=== PATIENT | male | born 1965 | race Caucasian/White ===

== ENCOUNTER 2020-05-13 12:26 | Outpatient (REF) | payer OTHER, SELFPAY ==
--- NOTE | 2020-05-13 12:47 | XR_ITS ---
EXAMINATION: XR HAND, RIGHT CLINICAL INFORMATION: Pain in right hand COMPARISON: 03/21/2020 TECHNIQUE: Two views of the right hand. FINDINGS: There is a fracture at the proximal shaft of the fifth metacarpal. Persistent radial displacement of the distal fragment, with alignment unchanged from prior. There is increased callus formation at the fracture site. No additional fractures are seen. The soft tissues are unremarkable. IMPRESSION: Redemonstration of the fifth metacarpal fracture at the proximal shaft. The fracture line remains evident with callus formation now present.
== END 2020-05-13 12:27 | disposition home or self-care (01) ==
LOC: HO.XRAY 12:26
PROVIDERS: PCP Internal Medicine; Referring Provider Internal Medicine; Visit Provider Physician Assistant
DX: S62.308D Unspecified fracture of other metacarpal bone, subsequent encounter for fracture with routine healing (principal)
CPT/HCPCS: 73120; 99212; 99213

== ENCOUNTER 2023-01-07 13:45 | Outpatient (REF) | payer OTHER, SELFPAY ==
--- NOTE | ~2023-01-07 | CT_ITS ---
EXAMINATION: LUNG CANCER SCREENING CT CHEST WITHOUT CONTRAST CLINICAL INFORMATION: Current smoker with 40 pack year history COMPARISON: 11/24/2008 TECHNIQUE: Multidetector volumetric CT imaging of the chest was obtained noncontrast using low dose screening CT technique. Axial thin section 0.625 mm reformations in soft tissue and lung windows were obtained. Sagittal and coronal reformations were obtained. Axial MIP images were also created and reviewed. This CT examination was performed using dose optimization techniques as appropriate, variously including the following: *Automated exposure control *Adjustment of mA and/or kV according to patient size (this includes techniques or standardized protocols for targeted exams where dose is matched to indication/reason for exam; i.e. extremities or head) *Use of iterative reconstruction technique TOTAL EXAM DLP: 41 mGy-cm FINDINGS: PULMONARY NODULES (see casper images): No suspicious pulmonary nodules. LUNGS / PLEURA: Mild emphysema. Diffuse mild bronchial wall thickening without bronchiectasis. No pleural effusion or pneumothorax. MEDIASTINUM / CHANELLE: Heart normal in size without pericardial effusion. Great vessels normal caliber. No lymphadenopathy. Coronary calcifications present. Imaged thyroid gland unremarkable. CHEST WALL / AXILLA: Unremarkable. UPPER ABDOMEN: Included portions grossly unremarkable allowing for limitations in technique. Stable benign cyst in the lateral segment of liver. OSSEOUS STRUCTURES: No acute or suspicious osseous abnormalities. CT/CT lung screening IMPRESSION: * No evidence of pulmonary malignancy. * Mild emphysema and chronic airways disease. ASSESSMENT: Lung RADS category: 1. Negative. No nodules or definitely benign nodules. Continue annual screening with low-dose CT in 12 months. Probability of malignancy less than 1%. RECOMMENDATION: Follow up low dose CT chest in 1 year.
== END 2023-01-07 13:46 | disposition home or self-care (01) ==
LOC: HO.CT 13:45
PROVIDERS: PCP Nurse Practitioner Family; Visit Provider Physician Assistant Medical
DX: Z12.2 Encounter for screening for malignant neoplasm of respiratory organs (principal); F17.210 Nicotine dependence, cigarettes, uncomplicated
CPT/HCPCS: 71271; G0296

== ENCOUNTER 2023-02-16 11:28 | Emergency (ER) | payer OTHER, SELFPAY ==
--- NOTE | ~2023-02-16 | XR_ITS ---
EXAMINATION: XR RIBS, RIGHT, PA CHEST CLINICAL INFORMATION: Rib pain. COMPARISON: None available. TECHNIQUE: 3 views of the right ribs were obtained along with a PA view of the chest. A skin marker overlies the left mid ribs. FINDINGS: Lungs are clear. No consolidation, pneumothorax, or pleural effusion. The cardiomediastinal silhouette and pulmonary vasculature are normal. Osseous structures are unremarkable. Ribs are intact. No fractures are identified. XR/XR ribs LT min 3V w CXR1V IMPRESSION: Unremarkable examination.
[2023-02-16 11:32] VITALS: BP 179/100; PULSE 58; RESP 19; TEMP 36.6; O2SAT 98; BMI 23.0
--- NOTE | 2023-02-16 11:32 | ED.FALL ---
HPI - Fall General Chief Complaint: General Medical Stated Complaint: possible rib broken Related Data Previous Rx's Medication Instructions Recorded blood pressure test kit-large #1 ea 04/17/21 ([facility] Blood Pressure Monitor kit) amitriptyline 25 mg tablet 25 mg PO BEDTIME 30 days #30 tabs 02/10/23 lisinopril 2.5 mg tablet 2.5 mg PO DAILY #90 tabs 02/10/23 albuterol sulfate 90 mcg/actuation 2 puff inhalation Q6H PRN 02/15/23 aerosol inhaler bronchospasm 30 days #8.5 grams Allergies Allergy/AdvReac Type Severity Reaction Status Date / Time metoclopramide [Reglan] Allergy Unknown vomiting Verified 12/16/22 09:06 morphine [Morphine] Allergy Unknown NAUSEA & Verified 12/16/22 09:06 VOMITING, nausea/vomiting, vomiting tramadol [TRAMADOL] Allergy Unknown VOMITING, Verified 12/16/22 09:06 nausea/vomiting, vomiting PMFSH Past Medical History Medical History (Updated 02/16/23 @ 15:36 by FRANKIE Kraus) HTN (hypertension) Migraines Nicotine dependence, cigarettes, uncomplicated Surgical History (Updated 01/07/23 @ 13:41 by Georgia Jack PA-C) History of removal of cyst History of right inguinal hernia repair History of shoulder surgery History of testicular surgery History of transurethral resection of prostate Family History Family History Father Lung cancer Mother Breast cancer Social History Social History (Updated 01/07/23 @ 13:41 by Georgia Jack PA-C) Housing: House Patient Tobacco Use Status: Current everyday Tobacco user Tobacco use type: Cigarette Cigarette Packs Per Day: 1 Years Smoked: (onset 9yo, 1ppd x 48yrs, 40+PYH) e-Cigarette/Vaping Use: Never Used Second Hand Smoke Exposure: No Advance Directives: No Advance Directives Information Provided: Yes Current occupational status: disabled Cognitive needs: No Hearing needs: No Vision needs: No Physical Exam Vital Signs: Vital Signs: Last Vital Signs Temp 98 F 02/16/23 11:32 Pulse 58 02/16/23 11:32 Resp 19 02/16/23 11:32 BP 179/100 H 02/16/23 11:32 Pulse Ox 98 02/16/23 11:32 O2 Del Method Room Air 02/16/23 11:32 BMI result Body Mass Index 23.0 Course Course Course Narrative: RME - 57 yo male presents to the ER for evaluation of 8/10 middle rib pain on the left after he tripped and fell last night while walking home. He fell onto the curb hitting his left ribs. Hx rib fx on that side. Plan: x-ray ribs Reevaluation(s) Reevaluation #1: patient eloped from the ER prior to full evaluation and treatment Discharge Plan Discharge Clinical Impression: Rib pain on left side Patient Disposition: Elopement Prescriptions: No Action (DME) blood pressure test kit-large [[facility] Blood Pressure Monitr] Kit See Rx Instructions .Route Qty: 1 0RF Rx Instructions: daily amitriptyline 25 mg tablet 25 mg PO BEDTIME 30 Days Qty: 30 5RF lisinopril 2.5 mg tablet 2.5 mg PO DAILY Qty: 90 1RF albuterol sulfate 90 mcg/actuation HFA aerosol inhaler 2 puff inhalation Q6H PRN (Reason: bronchospasm) 30 Days Qty: 8.5 1RF Interventions: ED Discharge Assessment Last Done: 02/16/23 14:13
== END 2023-02-16 15:58 | disposition left against medical advice (07) ==
LOC: HO.ED 15:26
PROVIDERS: Emergency Provider Emergency Medicine; PCP Nurse Practitioner Family
DX: R07.81 Pleurodynia (principal); I10 Essential (primary) hypertension; F17.210 Nicotine dependence, cigarettes, uncomplicated
CPT/HCPCS: 71101; 99282; 99283

== ENCOUNTER 2023-02-18 12:20 | Emergency (ER) | payer OTHER, SELFPAY ==
--- NOTE | ~2023-02-18 | XR_ITS ---
EXAMINATION: XR RIBS, RIGHT, PA CHEST CLINICAL INFORMATION: Left lateral rib pain status post fall down stairs. COMPARISON: 02/16/2023 chest and rib radiographs. TECHNIQUE: 3 views of the right ribs were obtained along with a PA view of the chest. A skin marker was placed overlying the lateral left mid ribs. FINDINGS: Lungs are clear. No consolidation, pneumothorax, or pleural effusion. The cardiomediastinal silhouette and pulmonary vasculature are normal. Old healed fractures are seen bilaterally including an old healed left lateral sixth rib fracture. Subtle linear lucency in the posterolateral left fourth rib. No fractures are identified. XR/XR ribs LT min 3V w CXR1V IMPRESSION: 1. No acute cardiopulmonary process. 2. Possible acute, nondisplaced fracture in the posterolateral left fourth rib. Old healed fractures bilaterally.
[2023-02-18 12:35] VITALS: BP 146/91; PULSE 63; RESP 20; TEMP 36.7; O2SAT 98; BMI 23.0
--- NOTE | 2023-02-18 12:35 | ED_ITS ---
HPI - General Adult General Chief complaint: General Medical Stated complaint: L Side Pain Time Seen by Provider: 02/18/23 14:59 Source: patient Mode of arrival: ambulatory Limitations: no limitations History of Present Illness HPI narrative: Patient is a 57 year old assigned male at with a history of HTN presenting to the emergency department today with left rib pain. Patient states that he fell and hit his left side 3 days ago. Patient denies hitting his head. Patient states that he was seen here previously and left before hearing any of his results. Patient denies any dizziness, lightheadedness, abdominal pain, nausea, vomiting, fever, chills, blurry vision, double vision, loss of vision, chest pain, difficulty breathing, shortness of breath, back pain, night sweats, pain with urination, increased urinary frequency, increased urinary urgency, blood in his urine or stool, syncope or a near syncopal episode, bowel incontinence, bladder incontinence, bowel retention, bladder retention, or any other complaints at this time. Onset (ago): day(s) (3) Location: left (ribs) Radiation: non-radiation Severity: mild Severity scale (1-10): 4 Quality: aching and dull Pain Consistency: constant Relieving factors: none Exacerbating factors: none Associated symptoms: denies other symptoms Treatments prior to arrival: none Related Data Previous Rx's Medication Instructions Recorded blood pressure test kit-large #1 ea 04/17/21 ([facility] Blood Pressure Monitor kit) amitriptyline 25 mg tablet 25 mg PO BEDTIME 30 days #30 tabs 02/10/23 lisinopril 2.5 mg tablet 2.5 mg PO DAILY #90 tabs 02/10/23 albuterol sulfate 90 mcg/actuation 2 puff inhalation Q6H PRN 02/15/23 aerosol inhaler bronchospasm 30 days #8.5 grams naproxen 500 mg tablet 500 mg PO BID 7 days #14 tabs 02/18/23 Allergies Allergy/AdvReac Type Severity Reaction Status Date / Time metoclopramide [Reglan] Allergy Unknown vomiting Verified 02/18/23 12:41 morphine [Morphine] Allergy Unknown NAUSEA & Verified 02/18/23 12:41 VOMITING, nausea/vomiting, vomiting tramadol [TRAMADOL] Allergy Unknown VOMITING, Verified 02/18/23 12:41 nausea/vomiting, vomiting Review of Systems Constitutional: Constitutional: Reports no additional constitutional complaints, Denies chills, Denies fever(s) and Denies night sweats Eyes: Eyes: Reports no additional eye complaints, Denies blurry vision, Denies change in vision, Denies diplopia, Denies eye discharge, Denies loss of vision and Denies eye pain ENT: Denies dizziness Cardiovascular: Cardiovascular: Reports no additional cardiovascular complaints, Denies chest pain, Denies lightheadedness, Denies Loss of Consciousness and Denies dyspnea Respiratory: Respiratory: Reports no additional respiratory complaints and Denies dyspnea Gastrointestinal: Gastrointestinal: Reports no additional gastrointestinal complaints, Denies abdominal pain, Denies melena, Denies hematochezia, Denies change in bowel habits and Denies change in stool character Genitourinary: Genitourinary: Reports no additional male genitourinary complaints, Denies hematuria, Denies oliguria, Denies difficulty urinating, Denies dysuria, Denies urinary frequency, Denies urinary hesitancy, Denies urinary incontinence and Denies urinary urgency Musculoskeletal: Musculoskeletal: Reports no additional musculoskeletal complaints, Denies numbness and Denies tingling Comments: left rib pain Neurologic: Denies dizziness, Denies loss of vision, Denies numbness and Denies tingling Psychiatric: Psychiatric: Reports no additional psychiatric complaints Endocrine: Endocrine: Reports no additional endocrine complaints Hematologic/Lymphatic: Hematologic/Lymphatic: Reports no additional hematologic/lymphatic complaints Allergic/Immunologic: Allergic/Immunologic: Reports no additional allergic/immunologic complaints [facility] Past Medical History Attestation statement: The following information was validated with the patient. Source: old records reviewed and nursing notes reviewed Medical History HTN (hypertension) Migraines Nicotine dependence, cigarettes, uncomplicated Surgical History History of removal of cyst History of right inguinal hernia repair History of shoulder surgery History of testicular surgery History of transurethral resection of prostate Family History Family History Father Lung cancer Mother Breast cancer Social History Social History Housing: House Patient Tobacco Use Status: Current everyday Tobacco user Tobacco use type: Cigarette Cigarette Packs Per Day: 1 Years Smoked: (onset 9yo, 1ppd x 48yrs, 40+PYH) e-Cigarette/Vaping Use: Never Used Second Hand Smoke Exposure: No Advance Directives: Yes Advance Directives Information Provided: Yes Advance Directives on File: No Current occupational status: disabled Cognitive needs: No Hearing needs: No Vision needs: No Physical Exam ED Vital Signs: Vital Signs - 24 hr 02/18/23 12:35 Temperature 98.0 F Pulse Rate 63 Respiratory Rate 20 Blood Pressure 146/91 H Pulse Oximetry 98 Oxygen Delivery Method Room Air BMI result Body Mass Index 23.0 Const General: cooperative, no acute distress, alert and awake Nutritional Appearance: well nourished Orientation/consciousness: patient oriented x3 Limitations: no limitations HENMT Head: Yes normal to inspection and Yes atraumatic Ears: hearing grossly normal bilaterally and external ears normal General nose exam: Normal external nose present, no nasal discharge noted and no epistaxis Face and sinus: Yes normal facial exam, No abrasion and No laceration Mouth: Normal oral and palatal mucosa present, no drooling and no muffled voice Eyes General: appearance normal, both eyes and all related structures Periorbital: periorbital findings normal Eyelids: Yes eyelids normal Conjunctivae: conjunctivae normal Pupils: Equal, round and reactive pupils present EOM: EOMs intact bilaterally Neck Neck: Yes normal visual inspection, Yes full ROM and Yes no lymphadenopathy Chest Chest palpation & inspection: normal inspection of the chest Resp Effort & Inspection: normal respiratory effort and able to speak in complete sentences GI Inspection: Yes normal to inspection Neuro General: patient oriented x3 and moves all extremities Cranial nerves: Yes Equal, round and reactive pupils present Cognition (Neuro): normal cognition Motor exam (neuro): 5/5 motor strength present throughout Sensory Exam: Normal double simultaneous stimulation for sensation Coordination: [id number] test normal Extrem General: Yes normal to inspection, Yes full ROM and Yes capillary refill normal Psych Appearance: grossly normal Mental Status: mental status grossly normal Affect: normal affect Attitude: cooperative Thought process: Normal thought process present Thought content: Normal thought content present Insight: Good insight present (Psych) Course Course Course Narrative: This is a rapid medical exam: Additional HPI, ROS, PE not included below will be deferred to primary provider. Patient is a 57-year-old male with history of HTN, migraines presenting to the emergency department with complaint of left lateral rib pain since Tuesday. States he was here Tuesday morning for same but eloped from the [facility] due to wait. States pain goes to back as well. Reports cough productive of white mucous. Reports fall on Tuesday night and fell down 10 stairs in his basement. Denies neck or back pain. Denies hitting his head or loss of consciousness. Not anticoagulated. Plan: Repeat x-ray Medications Administered Discontinued Medications Generic Name Dose Route Start Last Admin Trade Name Silvia PRN Reason Stop Dose Admin Acetaminophen 650 mg 02/18/23 12:42 02/18/23 14:45 Acetaminophen 325 Mg Tablet PO 02/18/23 12:43 Not Given ONCE ONE Hydrocodone Bitart/Acetaminophen 1 tab 02/18/23 15:16 02/18/23 15:21 Hydrocodone Bit/Acetam 5/325 Tablet PO 02/18/23 15:17 1 tab ONCE ONE Administration Medical Decision Making Medical Decision Making [facility] Narrative: Patient is a 57 year old assigned male at with a history of HTN presenting to the emergency department today with left sided rib pain. Patient's physical exam was unremarkable. Patient's blood work was unremarkable. Patient's chest x- ray showed a left sided rib fracture. I explained my physical exam findings as well as all test results to the patient. I answered all questions asked by the patient. Patient received PO [place] which he stated helped his symptoms significantly. I stressed the importance of the patient taking his medication as prescribed. I stressed the importance of the patient following up with his primary care provider. I stressed the importance of the patient returning to the emergency department immediately if his symptoms were to worsen or if he were to develop any dizziness, shortness of breath, difficulty breathing, chest pain, blurry vision, loss of vision, nausea, vomiting, abdominal pain, fever, chills, back pain, or any other complaints. Patient verbalized agreement and underst anding with this treatment plan and discharge. Differential Diagnosis Differential Diagnoses: The differential diagnosis associated with the presentation includes Left rib fracture Fall Admission/Observation Consideration of admission/observation: Escalation of care including admission/observation considered Patient would have been admitted to the hospital had his work up had any findings where hospital admission was appropriate and his clinical presentation warranted hospital admission. Lab Data [facility] Lab Attestation statement: I reviewed the patient's lab results. My interpretation of these studies and their corresponding values is that they are grossly normal. 02/18/23 13:22 02/18/23 13:22 Labs: Lab Results 02/18/23 02/18/23 Range/Units 13:22 13:22 WBC 6.3 (4.8-10.8) X10*3/uL RBC 4.32 L (4.60-5.80) X10*6/uL Hgb 14.1 (14.0-18.0) g/dl Hct 41.9 L (42.0-52.0) % MCV 97.0 (80.0-98.0) fL MCH 32.6 (27.0-33.0) pg MCHC 33.7 (31.0-36.0) g/dl RDW 12.3 (11.0-16.0) % Plt Count 156 L (160-400) X10*3/uL MPV 10.6 (9.4-12.4) fL Immature Gran % (Auto) 0.3 (0.0-0.4) % Neut % (Auto) 62.1 (45-73) % Lymph % (Auto) 18.3 L (20-40) % [place] % (Auto) 8.5 (2-11) % Eos % (Auto) 10.3 H (0-4) % Baso % (Auto) 0.5 (0-2) % Lymph # (Auto) 1.2 (1.2-4.9) X10*3/uL [place] # (Auto) 0.5 (0.1-1.2) X10*3/uL Eos # (Auto) 0.7 H (0.0-0.4) X10*3/uL Baso # (Auto) 0.0 (0.0-0.2) X10*3/uL Abs Immat Gran (auto) 0.02 (0.00-0.03) X10*3/uL Absolute Neuts (auto) 3.9 (2.0-8.3) x10*3/uL Absolute Nucleated RBC 0.000 (0.0-0.012) X10*3/uL Nucleated RBC % (auto) 0.0 (0.0-0.2) /100WBC Sodium 139 (135-145) mmol/L Potassium 4.2 (3.3-5.1) mmol/L Chloride 106 (96-108) mmol/L Carbon Dioxide 23 (22-29) mmol/L Anion Gap 14 (12-20) BUN 20 H (9-16) mg/dL Creatinine 1.22 (0.5-1.4) mg/dL Estim Creat Clear Calc 52.4 Estimated GFR > 60 Random Glucose 97 (60-115) mg/dL Calcium 8.8 (8.4-10.2) mg/dL Independent Interpretation I performed an independent interpretation of an: Plain X-Ray Interpretation: My interpretation is in agreement with the radiologist's impression of this imaging study. EXAMINATION: XR RIBS, RIGHT, PA CHEST CLINICAL INFORMATION: Left lateral rib pain status post fall down stairs. COMPARISON: 02/16/2023 chest and rib radiographs. TECHNIQUE: 3 views of the right ribs were obtained along with a PA view of the chest. A skin marker was placed overlying the lateral left mid ribs. FINDINGS: Lungs are clear. No consolidation, pneumothorax, or pleural effusion. The cardiomediastinal silhouette and pulmonary vasculature are normal. Old healed fractures are seen bilaterally including an old healed left lateral sixth rib fracture. Subtle linear lucency in the posterolateral left fourth rib. No fractures are identified. XR/XR ribs LT min 3V w CXR1V IMPRESSION: 1.? No acute cardiopulmonary process. 2.? Possible acute, nondisplaced fracture in the posterolateral left fourth rib. Old healed fractures bilaterally. Dictated By: Riccardo Molina MD Signed By: Electronically signed by Riccardo Molina MD 02/18/23 1429 Radiology Impression Discussion of test interpretation with radiology: I have reviewed the rad iologist's reading. Prescription Management I considered prescription management with: Pain Medication (patient prescribed a pain medication) Discharge Plan Discharge Clinical Impression: Closed rib fracture Patient Disposition: Home, Self-Care Instructions: Rib Fracture (ED) Additional Instructions: Follow up with your primary care provider. Return to the emergency department immediately if your symptoms worsen or if you develop any dizziness, shortness o f breath, difficulty breathing, chest pain, blurry vision, loss of vision, nausea, vomiting, abdominal pain, fever, chills, back pain, or any other complaints. Prescriptions: New naproxen 500 mg tablet 500 mg PO BID 7 Days Qty: 14 0RF No Action (DME) blood pressure test kit-large [[facility] Blood Pressure Monitr] Kit See Rx Instructions .Route Qty: 1 0RF Rx Instructions: daily amitriptyline 25 mg tablet 25 mg PO BEDTIME 30 Days Qty: 30 5RF lisinopril 2.5 mg tablet 2.5 mg PO DAILY Qty: 90 1RF albuterol sulfate 90 mcg/actuation HFA aerosol inhaler 2 puff inhalation Q6H PRN (Reason: bronchospasm) 30 Days Qty: 8.5 1RF Referrals: Kurtis Robison, [facility] [Primary Care Provider] - Interventions: ED Discharge Assessment Last Done: 02/18/23 15:25 Discharge Date/Time: 02/18/23 15:25 Print Language: Luxembourger
[2023-02-18 13:27] LABS: MANUAL DIFF FLAG NO
[2023-02-18 13:29] LABS: Basophils Percent Auto 0.5 % (0-2); Eosinophils Absolute Auto 0.7 X10*3/uL (0.0-0.4); Eosinophils Percent Auto 10.3 % (0-4); Hematocrit 41.9 % (42.0-52.0); Hemoglobin 14.1 g/dl (14.0-18.0); Imm Gran Abs Auto 0.02 X10*3/uL (0.00-0.03); Imm Gran Pct Auto 0.3 % (0.0-0.4); Lymphocytes Absolute Auto 1.2 X10*3/uL (1.2-4.9); Lymphocytes Percent Auto 18.3 % (20-40); Mean Corpuscular HGB Conc 33.7 g/dl (31.0-36.0); Mean Corpuscular Hemoglobin 32.6 pg (27.0-33.0); Mean Platelet Volume 10.6 fL (9.4-12.4); Monocytes Absolute Auto 0.5 X10*3/uL (0.1-1.2); Monocytes Percent Auto 8.5 % (2-11); Neutrophils Absolute Auto 3.9 x10*3/uL (2.0-8.3); Neutrophils Percent Auto 62.1 % (45-73); Platelet Count 156 X10*3/uL (160-400); Red Blood Count 4.32 X10*6/uL (4.60-5.80); Red Cell Distribution Width 12.3 % (11.0-16.0); White Blood Count 6.3 X10*3/uL (4.8-10.8)
[2023-02-18 13:46] LABS: Anion Gap 14 (12-20); Blood Urea Nitrogen 20 mg/dL (9-16); Calcium 8.8 mg/dL (8.4-10.2); Carbon Dioxide 23 mmol/L (22-29); Chloride 106 mmol/L (96-108); Creatinine Clr Calc Pharmacy 52.4; Estimated Glomerular Filt Rate > 60; Glucose Random 97 mg/dL (60-115); Potassium 4.2 mmol/L (3.3-5.1); Sodium 139 mmol/L (135-145)
[2023-02-18] MEDS: HYDROcodone Bit/Acetam 5/325 TABLET 1 TAB PO (15:21)
== END 2023-02-18 15:25 | disposition home or self-care (01) ==
PROVIDERS: Registered Nurse Emergency; Emergency Provider Emergency Medicine Emergency Medical Services; PCP Nurse Practitioner Family
DX: S22.39XA Fracture of one rib, unspecified side, initial encounter for closed fracture (principal); R07.89 Other chest pain; W01.10XA Fall on same level from slipping, tripping and stumbling with subsequent striking against unspecified object, initial encounter; Y93.9 Activity, unspecified; Y92.9 Unspecified place or not applicable; Y99.9 Unspecified external cause status; Z79.899 Other long term (current) drug therapy
CPT/HCPCS: 36415; 71101; 80048; 85025; 99283

== ENCOUNTER 2023-07-06 10:23 | Outpatient (AMB) | payer OTHER, SELFPAY ==
--- NOTE | 2023-07-06 11:33 | AM.OFFWIN_ITS ---
Intake Vital Signs 07/06/23 11:34 Height 5 ft 3 in BP 112/70 Blood Pressure Location Rt brachial Position Sitting Pulse 68 Pulse Source Pulse Oximeter Temp 97.3 F Temp Source Temporal Artery Scan Pulse Oximetry (%) 96 Oxygen Delivery Method Room Air Intake Visit Reasons: EST/nonstop coughing over a month(lobby masked) Intake Note: Pt is here c/o bad cough for over two months. Pt states it has gotten worse. Patient Tobacco Use Status: Current everyday Tobacco user Allergies metoclopramide [Reglan] Allergy (Unknown, Verified 07/06/23 11:36) vomiting morphine [Morphine] Allergy (Unknown, Verified 07/06/23 11:36) NAUSEA & VOMITING, nausea/vomiting, vomiting tramadol [TRAMADOL] Allergy (Unknown, Verified 07/06/23 11:36) VOMITING, nausea/vomiting, vomiting HPI HPI Comments History of Present Illness Details Aunt presents with patient + cough ongoing x 3 months per pt and au nt Green phlgm now from yellow Constant, worse at night Not seen for it yet He denies fevers or chills He said breathing is difficulty +smoking 2 ppd He has PCP but has not seen recently He said + fatigue without weight loss He has tried TC meds without relief Has script for albuterol at home but has been out of it and has not used PFSH Medical History HTN (hypertension) Migraines Nicotine dependence, cigarettes, uncomplicated Surgical History History of removal of cyst History of right inguinal hernia repair History of shoulder surgery History of testicular surgery History of transurethral resection of prostate Family History Father Lung cancer Mother Breast cancer Social History Housing: House Patient Tobacco Use Status: Current everyday Tobacco user Tobacco use type: Cigarette Cigarette Packs Per Day: 1 Years Smoked: (onset 9yo, 1ppd x 48yrs, 40+PYH) e-Cigarette/Vaping Use: Never Used Second Hand Smoke Exposure: No Current occupational status: disabled Cognitive needs: No Hearing needs: No Vision needs: No Review of Systems Const Denies chills, Reports difficulty sleeping, Reports fatigue (due to not sleeping due to cough), Denies fever(s) and Denies frequent falls ENT Denies nasal congestion, Denies nasal discharge, Denies sinus pressure and Denies sore throat Card Denies chest pain, Denies rapid heart rate and Reports dyspnea Resp Reports chest congestion, Reports cough, Reports pain with cough (sometimes) and Reports dyspnea GI Denies other (denies wt changes) Neuro Denies frequent falls Endo Reports fatigue (due to not sleeping due to cough) Physical Exam Vital Signs: Last Vital Signs Temp 97.3 F 07/06/23 11:34 Pulse 68 07/06/23 11:34 BP 112/70 07/06/23 11:34 Pulse Ox 96 07/06/23 11:34 Oxygen Delivery Method Room Air 07/06/23 11:34 General: NAD. Speaking full sentences. Skin: Warm dry throughout Eye: EOMI HENT: Airway patent. Uvula midline. No pharyngeal erythema or edema. 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 Muc osal membranes moist Bilateral canals clear. TM non-erythematous, non-bulging. No TM perforation or hemotympanum noted. Respiratory: No tachypnea. Rhonchi throughout. No crackles or decreased Cardiac: RRR. No murmur MSK: Full ROM extremities. Neurology: A/O. No aphasia or facial droop. Gait without abnormality Psych: Good mood and affect Assessment & Plan Assessment & Plan (1) Cough: Code(s): R05.9 - Cough, unspecified Qualifiers: Cough type: subacute Qualified Code(s): R05.2 - Subacute cough (2) Smoker: Code(s): F17.200 - Nicotine dependence, unspecified, uncomplicated Plan Patient seen and evaluated. Chest xray ordered due to auscultation and length of cough I viewed image and negative for infiltrate aside from COPD Doxy as prescribed with food Refill Albuterol given Tessalon for cough Call PCP for follow up and amytrip refill Patient gave verbal understanding and had no additional questions or concerns at time of discharge All questions answered Orders: Orders XR chest 2V 07/06/23 R05.9 - Cough, unspecified Medications: New doxycycline hyclate 100 mg PO BID 14 caps 0RF R05.9 - Cough, unspecified benzonatate 100 mg PO BID-TID PRN 14 caps 0RF cough R05.9 - Cough, unspecified albuterol sulfate 90 mcg/actuation 1 inh inhalation QID PRN 6.7 grams 0RF shortness of breath or wheezing R05.9 - Cough, unspecified Coding Level of Care Code Est Pt Level 3 (38099) Diagnoses Subacute cough R05.2 Cough type: subacute Smoker F17.200
[2023-07-06 11:34] VITALS: BP 112/70; PULSE 68; TEMP 36.3; O2SAT 96
== END 2023-07-06 14:04 | disposition home or self-care (01) ==
PROVIDERS: PCP Nurse Practitioner Family; Visit Provider Physician Assistant
DX: R05.2 Subacute cough (principal); F17.200 Nicotine dependence, unspecified, uncomplicated
CPT/HCPCS: 99213

== ENCOUNTER 2023-07-06 12:33 | Outpatient (REF) | payer OTHER, SELFPAY ==
--- NOTE | ~2023-07-06 | XR_ITS ---
EXAMINATION: XR CHEST CLINICAL INFORMATION: Cough COMPARISON: Left rib radiograph from 02/11/2020 TECHNIQUE: 2 views of the chest were obtained. FINDINGS: Hyperinflation of the bilateral lung sanchez. Chronic interstitial lung markings. No pneumothorax. Trachea is midline. Cardiac mediastinal silhouette is not enlarged. No large pleural effusion. Degenerative changes of the thoracolumbar spine. Air noted in the subdiaphragmatic region likely within the stomach and transverse colon. Soft tissues are unremarkable. XR/XR chest 2V IMPRESSION: 1. No acute cardiopulmonary process. 2. Hyperinflation of the bilateral lung sanchez. 3. Chronic interstitial lung markings.
== END 2023-07-06 12:34 | disposition home or self-care (01) ==
LOC: HO.HMGCX 12:33
PROVIDERS: PCP Nurse Practitioner Family; Visit Provider Physician Assistant
DX: R05.9 Cough, unspecified (principal)
CPT/HCPCS: 71046

== ENCOUNTER 2024-02-20 08:19 | Outpatient (AMB) | payer OTHER, SELFPAY ==
--- NOTE | 2024-02-20 08:46 | AM.OFFWIN_ITS ---
Intake Vital Signs 02/20/24 08:47 Height 5 ft 3 in Weight 119 lb BMI 21.1 BP 118/80 Blood Pressure Location Rt brachial Position Sitting Pulse 61 Pulse Source Pulse Oximeter Temp 98.6 F Temp Source Oral Pulse Oximetry (%) 97 Oxygen Delivery Method Room Air Intake Visit Reasons: Lump on navel Intake Note: pt here c/o lump on navel. Patient Tobacco Use Status: Current everyday Tobacco user Allergies metoclopramide [Reglan] Allergy (Unknown, Verified 02/20/24 08:46) vomiting morphine [Morphine] Allergy (Unknown, Verified 02/20/24 08:46) NAUSEA & VOMITING, nausea/vomiting, vomiting tramadol [TRAMADOL] Allergy (Unknown, Verified 02/20/24 08:46) VOMITING, nausea/vomiting, vomiting Medication List - Last Reconciled 02/20/24 by Brigitte Guadarrama NP albuterol sulfate 90 mcg/actuation 1 inh inhalation QID PRN albuterol sulfate 90 mcg/actuation 2 puffs inhalation Q6H PRN 30 days amitriptyline 25 mg PO BEDTIME 30 days blood pressure test kit-large ([employer]ocate Blood Pressure Monitor kit) daily lisinopril 2.5 mg PO DAILY naproxen 500 mg PO BID 7 days Do you need a note to return to daycare/school/sports/work: No HPI Lump on navel HPI Details This note is constructed using voice recognition software. While every effort has been made to ensure accuracy, cutting machine fixer errors may have been included. The patient is a 58 year old male who presents to the clinic today with concern for lump on nasal, onset 3 weeks ago. He reports gradual onset, no specific or particular heavy lifting prior to this. Denies fever, chills. He reports that his bowels and bladder are moving his normal. He denies redness and warmth. He does report that there is a scab to the area, and he does not recall scratching or picking it. He does not recall any discharge from the area. [facility] Medical History HTN (hypertension) Migraines Nicotine dependence, cigarettes, uncomplicated Surgical History History of removal of cyst History of right inguinal hernia repair History of shoulder surgery History of testicular surgery History of transurethral resection of prostate Family History Father Lung cancer Mother Breast cancer Social History Housing: House Patient Tobacco Use Status: Current everyday Tobacco user Tobacco use type: Cigarette Cigarette Packs Per Day: 1 Years Smoked: (onset 9yo, 1ppd x 48yrs, 40+PYH) e-Cigarette/Vaping Use: Never Used Second Hand Smoke Exposure: No Current occupational status: disabled Cognitive needs: No Hearing needs: No Vision needs: No Review of Systems Const All systems reviewed & are unremarkable except as noted in HPI and below Physical Exam Vital Signs: Last Vital Signs Temp 98.6 F 02/20/24 08:47 Pulse 61 02/20/24 08:47 BP 118/80 02/20/24 08:47 Pulse Ox 97 02/20/24 08:47 Oxygen Delivery Method Room Air 02/20/24 08:47 BMI result Body Mass Index 21.1 Const General: cooperative, healthy appearing, comfortable, no acute distress and alert Orientation/consciousness: patient oriented x3 Limitations: no limitations GI Inspection: Yes normal to inspection (See skin section) Palpation (GI): Soft to palpation and nontender Percussion: Yes normal to percussion Auscultation: normal bowel sounds Skin Other: Four by 4 mm mobile, tender, fluctuant cystic structure at umbilicus. Additionally scabbing over it area. No erythema or warmth. General skin exam: elasticity normal and turgor normal Neuro General: patient oriented x3 Psych Appearance: grossly normal Mental Status: mental status grossly normal Speech and movement: Normal speech and movement present Affect: normal affect Assessment & Plan Assessment & Plan (1) Soft tissue infection: Code(s): L08.9 - Local infection of the skin and subcutaneous tissue, unspecified Plan: Antimicrobial therapy initiated for cystic structure to umbilicus. Advised patient to follow up with PCP should this fail to resolve or worsen. Reviewed potential that this could be a small hernia, however given physical examination findings more consistent with cystic structure. Advised patient that if this does not resolve as he would likely require additional workup for possible hernia. Plan See above for full details and plan. Medications: New sulfamethoxazole-trimethoprim 800-160 mg (Bactrim DS) 1 tab PO BID 5 days 10 tabs 0RF Coding Level of Care Code Est Pt Level 3 (55009) Diagnoses Soft tissue infection L08.9
[2024-02-20 08:47] VITALS: BP 118/80; PULSE 61; TEMP 37; O2SAT 97; BMI 21.1
== END 2024-02-20 09:57 | disposition home or self-care (01) ==
PROVIDERS: PCP Nurse Practitioner Family; Visit Provider Registered Nurse
DX: L08.9 Local infection of the skin and subcutaneous tissue, unspecified (principal)
CPT/HCPCS: 99213

== ENCOUNTER 2024-05-02 14:48 | Outpatient (REF) | payer OTHER, SELFPAY ==
--- NOTE | ~2024-05-02 | CT_ITS ---
EXAMINATION: CT LOW-DOSE SCREENING CHEST WITHOUT CONTRAST CLINICAL INFORMATION: Nicotine dependence, cigarettes, uncomplicated. The patient is a current smoker with a 48 pack-year history of smoking. COMPARISON: X-ray chest 07/06/2023. CT chest 01/07/2023. TECHNIQUE: Multidetector volumetric CT imaging of the chest is performed on a Siemens SOMATOM Definition scanner without contrast using low dose technique. Additional 2D coronal and sagittal reformatted images and axial 3D maximum intensity projection (MIP) images are generated on the CT workstation. This CT examination was performed using dose optimization techniques as appropriate, variously including the following: *Automated exposure control *Adjustment of mA and/or kV according to patient size (this includes techniques or standardized protocols for targeted exams where dose is matched to indication/reason for exam; i.e. extremities or head) *Use of iterative reconstruction technique TOTAL EXAM DLP: 36 mGy-cm. CTDIvol: 0.98 mGy. FINDINGS: PULMONARY NODULES: No suspicious pulmonary nodules. LUNGS: Lungs bilaterally symmetrically expanded. There is moderate emphysema and bronchial thickening without bronchiectasis. No effusion or pneumothorax. Central airways patent. MEDIASTINUM: No mediastinal, hilar or axillary adenopathy or free fluid collection. CORONARY ARTERY CALCIFICATION: Moderate. THYROID GLAND: Unremarkable to the extent seen. CARDIOVASCULAR STRUCTURES: Aortic and heart size normal. No pericardial effusion. CHEST WALL/AXILLA: Unremarkable. UPPER ABDOMEN: Included portions of the solid organs in the upper abdomen unremarkable on noncontrast imaging. OSSEOUS STRUCTURES: No suspicious focal findings. CT/CT lung screening IMPRESSION: No findings seen suspicious for malignancy. ASSESSMENT: 1. Lung-RADS Category 1: Negative. There are no nodules or there are definitely benign nodules. N/A 2. Lung-RADS Category S: Negative. There are no clinically significant or potentially clinically significant findings not related to the lungs requiring urgent additional evaluation. RECOMMENDATION: Continued routine annual low-dose CT lung screening in 1 year is recommended. An order for CT CHEST LOW DOSE CANCER SCREENING ([id number]) can be placed. Electronically signed by: Reid Jimenes MD 06/15/2024 08:13 PM [facility]
== END 2024-05-02 14:49 | disposition home or self-care (01) ==
LOC: HO.CT 14:48
PROVIDERS: PCP Nurse Practitioner Family; Visit Provider Physician Assistant Medical
DX: Z12.2 Encounter for screening for malignant neoplasm of respiratory organs (principal); F17.210 Nicotine dependence, cigarettes, uncomplicated
CPT/HCPCS: 71271

== ENCOUNTER 2024-06-25 15:52 | Outpatient (AMB) | payer OTHER, MEDICAID, SELFPAY ==
[2024-06-25 15:55] VITALS: BP 122/70; PULSE 70; O2SAT 97; BMI 20.9
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
== END 2024-06-25 16:43 | disposition home or self-care (01) ==
PROVIDERS: PCP Nurse Practitioner Family; Visit Provider Nurse Practitioner Family
DX: G43.909 Migraine, unspecified, not intractable, without status migrainosus (principal); Z12.5 Encounter for screening for malignant neoplasm of prostate

== ENCOUNTER → 2024-06-25 15:52 | Outpatient (BNVA) | payer SELFPAY | PROVIDERS: PCP Nurse Practitioner Family; Visit Provider Nurse Practitioner Family | DX: G43.909 Migraine, unspecified, not intractable, without status migrainosus (principal); H54.8 Legal blindness, as defined in USA; I10 Essential (primary) hypertension; H26.9 Unspecified cataract; Z79.899 Other long term (current) drug therapy | CPT/HCPCS: 96127; 99212 ==

== ENCOUNTER 2024-10-22 09:03 | Outpatient (AMB) | payer OTHER, SELFPAY ==
[2024-10-22 09:07] VITALS: BP 146/90; PULSE 70; O2SAT 96; BMI 20.9
--- NOTE | 2024-10-22 09:07 | MHC.PC.OV ---
Vital Signs 10/22/24 09:07 10/22/24 09:45 Height 5 ft 3 in Weight 118 lb BMI 20.9 BP 146/90 H 136/82 Blood Pressure Location Lt brachial Lt brachial Position Sitting Sitting Pulse 70 Pulse Source Pulse Oximeter Pulse Oximetry (%) 96 Oxygen Delivery Method Room Air Intake Visit Reasons: PE Distribution Sales Representative Required: No Accompanied by: Self / Same As Patient Allergies metoclopramide [Reglan] Allergy (Unknown, Verified 10/22/24 09:24) vomiting morphine [Morphine] Allergy (Unknown, Verified 10/22/24 09:24) NAUSEA & VOMITING, nausea/vomiting, vomiting tramadol [TRAMADOL] Allergy (Unknown, Verified 10/22/24 09:24) VOMITING, nausea/vomiting, vomiting Medication List - Last Reconciled 10/22/24 by VAL ToribioP- albuterol sulfate 90 mcg/actuation 1 inh inhalation QID PRN albuterol sulfate 90 mcg/actuation 2 puffs inhalation Q6H PRN 30 days amitriptyline 50 mg PO BEDTIME 30 days blood pressure test kit-[facility] ([facility] Blood Pressure Monitor kit) daily lisinopril 2.5 mg PO DAILY sumatriptan succinate take 1 tab at onset of headache; if no relief may repeat 1 tab after at least 2 hrs; max = 4 tabs/24 hr PO 30 days Tobacco use date assessed: 10/22/24 Dental Screening Dental Screen Date: 10/22/24 Did you have a dental visit in the last 12 months?: Yes Did you have a dental problem in the last 6 months where you did not have access to dental care?: No Was dental information given to patient?: Patient has dentist HPI PE HPI Details History of Present Illness The patient is a 59-year-old male presenting for a wellness examination. He reports no new issues and denies experiencing shortness of breath, chest pain, gastrointestinal bleeding, constipation, or diarrhea. He is legally blind and has a developmental delay from . He communicates without any issues and states that his thin body stature has been consistent throughout his life. His colonoscopy is reported to be current, though this is not documented in our records. The patient refused a digital rectal exam for prostate evaluation, and laboratory tests had been previously ordered in June. Pt is part of our LDCT program. Encouraged pt to get his labs drawn soon. Health Maintenance - Colonoscopy reportedly up to date (verification needed) - Labs ordered in June (yet to be completed) Social History - Legally blind since - Developmental delay present since - Communicates effectively despite disabilities Review of Systems -denies any fevers or chills. - Respiratory: Denies shortness of breath - Cardiovascular: Denies chest pain - Gastrointestinal: Denies blood in stool, constipation, diarrhea -denies any anxiety/depression, SI or HI Physical Exam General: Cooperative, healthy appearing, comfortable, no acute distress and well developed, skinny stature Orientation: Patient oriented x3 Limitations: Developmental delay Head: Normal to inspection Ears: Hearing grossly normal bilaterally Nose: Normal external nose present Face and sinus: Normal facial exam Eyes: Patient is technically legally blind Neck: Normal visual inspection and Yes full ROM Respiratory: Normal respiratory effort and able to speak in complete sentences. Clear to auscultation bilaterally with faint crackles at the bases Cardiovascular: Regular rate and rhythm. Normal S1 and S2 GI: Normal to inspection. Soft to palpation and nontender Skin: No rashes or lesions noted Neuro: Patient oriented x3 Extremities: Very skinny stature, normal to inspection Results Plan During the visit, I focused on ensuring the patient's wellness, especially in light of his legal blindness and developmental delay, which not impair communication. I advised him to complete the laboratory tests ordered last June and stressed the importance of prostate health surveillance, even though he declined the digital rectal exam. The colonoscopy's status needs verification for complete documentation. I noted his current status appears stable, with recommended follow-up on pending labs to maintain general wellness and assess potential future risks. Discussion Notes I discussed the wellness examination with the patient, emphasizing the stability of his current health. We reviewed necessary follow-ups on the laboratory tests ordered in June and the significance of monitoring prostate health despite his refusal today. I also highlighted the need to confirm the up-to-date status of his colonoscopy for proper health documentation and addressed that his legally blind status and developmental delay did not hinder his ability to effectively communicate during the visit. I assured him that these steps are crucial to maintaining his overall well-being and encouraged him to stay proactive about his health. Patient Instructions - Complete previously ordered lab tests as soon as possible. - Follow up on colonoscopy status with the office staff. - Consider prostate health monitoring and discuss any concerns at the next visit. - Maintain general wellness and report any new symptoms or concerns. FORMERLY [facility], [facility] Medical History Nicotine dependence, cigarettes, uncomplicated HTN (hypertension) Migraines Surgical History History of transurethral resection of prostate History of right inguinal hernia repair History of removal of cyst History of testicular surgery History of shoulder surgery Family History Father Lung cancer Mother Breast cancer Social History Housing: House Patient Tobacco Use Status: Current everyday Tobacco user Tobacco use type: Cigarette Cigarette Packs Per Day: 1 Years Smoked: (onset 9yo, 1ppd x 48yrs, 40+PYH) e-Cigarette/Vaping Use: Never Used Second Hand Smoke Exposure: No Current occupational status: disabled Cognitive needs: No Hearing needs: No Vision needs: No Questionnaire PHQ-9 Over the last 2 weeks, how often have you been bothered by any of the following problems? 1. Little interest or pleasure in doing things: not at all 2. Feeling down, depressed, or hopeless: nearly every day 3. Trouble falling or staying asleep, or sleeping too much: not at all 4. Feeling tired or having little energy: not at all 5. Poor appetite or overeating: not at all 6. Feeling bad about yourself - or that you are a failure or have let yourself or your family down: more than half the days 7. Trouble concentrating on things, such as reading the newspaper or watching television: not at all 8. Moving or speaking so slowly that other people could have noticed. Or the opposite - being so fidgety or restless that you have been moving around a lot more than usual: not at all 9. Thoughts that you would be better off or of hurting yourself in some way: several days Total score: 6 Depression Screening Interpretation: Negative (will have frank speak with pt) Depression Screening Done: Yes 53721 - PHQ-9 Billing: Yes Source: Developed by Drs. Hood Mora, Halley B.Al Galeana and colleagues, with an educational zachary from [employer]. Thrive Questionnaire Date Thrive assessed: 10/22/24 I am a: Patient What is your living situation today?: I have a steady place to live Within the past 12 months, did the food you bought not last and you didn't have the money to get more?: Never true Within the past 12 months, did you worry whether your food would run out before you got money to buy more?: Never true Do you have trouble paying for medicines?: No Do you have trouble getting transportation to medical appointments?: No Do you have trouble paying your heating and electricity bill?: No Do you have trouble taking care of your child, family member or friend?: No Do you have trouble with day-to-day activities such as bathing, preparing meals, shopping, managing finances, etc.?: No Are you currently unemployed and looking for a job?: No Are you interested in more education?: No Please select the resources that you would like help with: Paying for medicine and Utilities Currently or been in a relationship where the following occur: No concerns reported THRIVE Score: 0 AUDIT C Alcohol Use Questionnaire (AUDIT-C) 1. How often do you have a drink containing alcohol?: Never 3. How often do you have six or more drinks on one occasion?: Never Total Score: 0 Score Reviewed/Action Taken: Yes KENNETH-7 AMB Questionnaire KENNETH-7 Date KENNETH - 7 assessed: 10/22/24 Feeling nervous, anxious, or on edge: 0 = Not at all Not being able to stop or control worryin = Not at all Worrying too much about different things: 0 = Not at all Trouble relaxin = Not at all Being so restless that it is hard to sit still: 0 = Not at all Becoming easily annoyed or irritable: 0 = Not at all Feeling afraid as if something awful might happen: 0 = Not at all Total KENNETH-7 score (0-4 normal; 5-9 mild; 10-14 moderate; 15-21 severe): 0 Source: Developed by Drs. Hood Mora, Al Leonardo and colleagues, with an educational zachary from [employer]. KENNETH-7 Assessment Billing KENNETH-7 Assessment Tool: KENNETH-7 Assessment 09091 Physical exam (Primary Care) Vital Signs: Last Vital Signs Pulse 70 10/22/24 09:07 BP 146/90 H 10/22/24 09:07 Pulse Ox 96 10/22/24 09:07 Oxygen Delivery Method Room Air 10/22/24 09:07 BMI result Body Mass Index 20.9 Tobacco/Smoking Status: Tobacco use Status Tobacco use date assessed 10/22/24 10/22/24 09:09 Patient Tobacco Use Status Current everyday Tobacco 10/22/24 09:09 Tobacco use type Cigarette 10/22/24 09:09 e-Cigarette/Vaping Use Never Used 10/22/24 09:09 PHQ-9: PHQ-9 Score PHQ-9: Total score 6 10/22/24 09:37 Depression Screening Interpretation: Negative (will have frank speak with pt) Thrive Assessment: Date of Thrive Assessment Date Thrive assessed 10/22/24 10/22/24 09:09 Currently or been in a relationship where the following occur: No concerns reported Coding Level of Care Code Est Pt Prev Care 40-64y(99495) Diagnoses Physical exam Z00.00 HTN (hypertension) I10 Additional Codes KENNETH-7 Assessment Billing - KENNETH-7 Assessment Tool: KENNETH-7 Assessment 30127 ([id number]) PHQ-9 - 24415 - PHQ-9 Billing: Yes ([id number]) Assessment & Plan Assessment & Plan (1) Physical exam: Code(s): Z00.00 - Encounter for general adult medical examination without abnormal findings Category: Medical (2) HTN (hypertension): Code(s): I10 - Essential (primary) hypertension Category: Medical Plan: most likely White Coat Syndrome component Plan .
[2024-10-22 09:45] VITALS: BP 136/82
== END 2024-10-22 09:48 | disposition home or self-care (01) ==
LOC: HO.HMCC 09:03
PROVIDERS: PCP Nurse Practitioner Family; Visit Provider Nurse Practitioner Family
DX: Z00.00 Encounter for general adult medical examination without abnormal findings (principal); I10 Essential (primary) hypertension

== ENCOUNTER → 2024-10-22 09:03 | Outpatient (BNVA) | payer OTHER, SELFPAY | PROVIDERS: PCP Nurse Practitioner Family; Visit Provider Nurse Practitioner Family | DX: Z00.00 Encounter for general adult medical examination without abnormal findings (principal); I10 Essential (primary) hypertension | CPT/HCPCS: 96127; 99396 ==

== ENCOUNTER 2025-04-23 10:22 | Outpatient (AMB) | payer OTHER, SELFPAY ==
[2025-04-23 10:38] VITALS: BP 148/92; PULSE 57; RESP 16; TEMP 36.6; O2SAT 96; BMI 18.6
--- NOTE | 2025-04-23 10:38 | A.OFFPC_ITS ---
Vital Signs 04/23/25 10:38 04/23/25 11:23 Height 5 ft 3 in Weight 105 lb BMI 18.6 BP 148/92 H 160/100 H Blood Pressure Location Lt brachial Rt brachial Position Sitting Sitting Respiration 16 Pulse 57 Pulse Source Pulse Oximeter Temp 97.8 F Temp Source Oral Pulse Oximetry (%) 96 Oxygen Delivery Method Room Air Intake Visit Reasons: 6m follow up Account Development Specialist Required: No Accompanied by: Self / Same As Patient Allergies metoclopramide (Reglan) Allergy (Unknown, Verified 10/22/24 09:24) vomiting morphine (Morphine) Allergy (Unknown, Verified 10/22/24 09:24) NAUSEA & VOMITING, nausea/vomiting, vomiting tramadol (TRAMADOL) Allergy (Unknown, Verified 10/22/24 09:24) VOMITING, nausea/vomiting, vomiting Medication List - Last Reconciled 04/23/25 by RAMIN Toribio- albuterol sulfate 90 mcg/actuation 1 inh inhalation QID PRN albuterol sulfate 90 mcg/actuation 2 puffs inhalation Q6H PRN 30 days amitriptyline 50 mg PO BEDTIME 30 days blood pressure test kit-large ([facility] Blood Pressure Monitor kit) daily lisinopril 2.5 mg PO DAILY Tobacco use date assessed: 04/23/25 Dental Screening Dental Screen Date: 04/23/25 Did you have a dental visit in the last 12 months?: No Did you have a dental problem in the last 6 months where you did not have access to dental care?: No Was dental information given to patient?: Patient declined HPI 6m follow up HPI Details Chief Complaint The patient presents for follow-up regarding hypertension and preventative care measures. History of Present Illness The patient is a 60-year-old male presenting with follow-up for hypertension management and preventative care. He has a history of hypertension and is aware of the need for regular monitoring and management of his condition. The patient has a significant history of smoking, which he acknowledges as a risk factor for his health. Despite understanding the dangers, he continues to smoke excessively (part of our LDCT program) Preventative care measures were discussed, including the need for a colon cancer screening, which he has not yet completed. He was previously referred for this screening but did not attend the appointment. The patient denies any active abdominal pain, chest pain, or increased shortness of breath. His caregiver is present and will assist in reminding him to complete his lab work and follow-up appointments. skinny stature: walks a lot, eats once a day, denies use of any street drugs. Encouraged getting labs drawn in the near future fasting Social History - Smoking: The patient smokes excessivel y and is aware of the associated health risks. - Exercise: The patient walks frequently as part of his routine. Health Maintenance - Colon cancer screening: Patient was pr eviously referred but did not attend the appointment. Re-referral planned. - Smoking cessation: Discussed the dange rs of smoking and encouraged cessation. vaccinations written down, can get at his pharmacy Review of Systems - Cardiovascular: Denies chest pain. - Respiratory: Denies increased shortnes s of breath. - Gastrointestinal: Denies abdominal kaylyn n. -denies any fevers, chills, N/V Physical Exam General: Cooperative, healthy appearing, comfortable, no acute distress, skinny stature Orientation: Patient oriented x3 Limitations: developmental delay Head: Normal to inspection Ears: Hearing grossly normal bilaterally Nose: Normal external nose present Face and sinus: Normal facial exam Eyes: Appearance normal, both eyes and all related structures Neck: Normal visual inspection and Yes full ROM Respiratory: Lungs work coarse bilaterally Cardiovascular: Regular rate and rhythm. S1 to S2 GI: Normal to inspection. Soft to palpation and nontender Skin: No rashes or lesions noted Neuro: Patient oriented x3 Extremities: Normal to inspection Results Plan 1. Essential Hypertension The patient is advised to continue monitoring his blood pressure regularly and adhere to prescribed antihypertensive medications. Lifestyle modifications, including smoking cessation and increased physical activity, are recommended to aid in blood pressure control. NN follow up planned for in 1 month, lisinopril increased from 2.5mg to 10mg 2. Tobacco Use Disorder The patient is encouraged to quit smoking due to the associated health risks, including its impact on hypertension. Supportive measures and resources for smoking cessation should be considered. 3. Preventative Care: Colon Cancer Scree kanu The patient will be re-referred for a colon cancer screening, as he missed the previous appointment. It is important to complete this screening as part of routine preventative care. Discussion Notes I discussed with the patient the importance of managing his hypertension through regular monitoring and medication adherence. We also talked about the significant health risks associated with smoking and the benefits of cessation. I emphasized the need for completing his colon cancer screening and will re- refer him for this test. encouraged continued LDCTs Patient Instructions - Monitor your blood pressure regularly and take your medications as prescribed. - Consider quitting smoking and seek sup port if needed. - Attend the re-scheduled colon cancer s creening appointment. [facility] Medical History Nicotine dependence, cigarettes, uncomplicated HTN (hypertension) Migraines Surgical History History of transurethral resection of prostate History of right inguinal hernia repair History of removal of cyst History of testicular surgery History of shoulder surgery Family History Father Lung cancer Mother Breast cancer Social History Housing: House Patient Tobacco Use Status: Current everyday Tobacco user Tobacco use type: Cigarette Cigarette Packs Per Day: 1 Years Smoked: (onset 9yo, 1ppd x 48yrs, 40+PYH) e-Cigarette/Vaping Use: Never Used Second Hand Smoke Exposure: No Current occupational status: disabled Cognitive needs: No Hearing needs: No Vision needs: No Questionnaire PHQ-9 Over the last 2 weeks, how often have you been bothered by any of the following problems? 1. Little interest or pleasure in doing things: several days 2. Feeling down, depressed, or hopeless: nearly every day 3. Trouble falling or staying asleep, or sleeping too much: not at all 4. Feeling tired or having little energy: not at all 5. Poor appetite or overeating: not at all 6. Feeling bad about yourself - or that you are a failure or have let yourself or your family down: several days 7. Trouble concentrating on things, such as reading the newspaper or watching television: not at all 8. Moving or speaking so slowly that other people could have noticed. Or the opposite - being so fidgety or restless that you have been moving around a lot more than usual: not at all 9. Thoughts that you would be better off or of hurting yourself in some way: several days Total score: 6 Depression Screening Interpretation: Negative (will have frank speak with pt) Depression Screening Done: Yes 56545 - PHQ-9 Billing: Yes Source: Developed by Drs. Hood Mora, Halley Bellamy, Al López and colleagues, with an educational zachary from [employer]. Thrive Questionnaire Date Thrive assessed: 10/22/24 KENNETH-7 AMB Questionnaire KENNETH-7 Date KENNETH - 7 assessed: 04/23/25 Feeling nervous, anxious, or on edge: 0 = Not at all Not being able to stop or control worryin = Not at all Worrying too much about different things: 0 = Not at all Trouble relaxin = Not at all Being so restless that it is hard to sit still: 0 = Not at all Becoming easily annoyed or irritable: 0 = Not at all Feeling afraid as if something awful might happen: 0 = Not at all Total KENNETH-7 score (0-4 normal; 5-9 mild; 10-14 moderate; 15-21 severe): 0 Source: Developed by Drs. Hood Mora, Halley Bellamy, Al López and colleagues, with an educational zachary from [employer]. Physical exam (Primary Care) Vital Signs: Last Vital Signs Temp 97.8 F 04/23/25 10:38 Pulse 57 04/23/25 10:38 Resp 16 04/23/25 10:38 BP 148/92 H 04/23/25 10:38 Pulse Ox 96 04/23/25 10:38 Oxygen Delivery Method Room Air 04/23/25 10:38 BMI result Body Mass Index 18.6 Tobacco/Smoking Status: Tobacco use Status Tobacco use date assessed 04/23/25 04/23/25 10:42 Patient Tobacco Use Status Current everyday Tobacco 04/23/25 10:42 Tobacco use type Cigarette 04/23/25 10:42 e-Cigarette/Vaping Use Never Used 04/23/25 10:42 PHQ-9: PHQ-9 Score PHQ-9: Total score 6 04/23/25 11:14 Depression Screening Interpretation: Negative (will have frank speak with pt) Thrive Assessment: Date of Thrive Assessment Date Thrive assessed 10/22/24 04/23/25 10:42 Coding Level of Care Code Est Pt Level 3 (11474) Diagnoses HTN (hypertension) I10 Screening-pulmonary TB Z11.1 Screening for colon cancer Z12.11 Skinny R68.89 Additional Codes PHQ-9 - 70845 - PHQ-9 Billing: Yes ([id number]) Assessment & Plan Assessment & Plan (1) HTN (hypertension): Code(s): I10 - Essential (primary) hypertension Category: Medical (2) Screening-pulmonary TB: Code(s): Z11.1 - Encounter for screening for respiratory tuberculosis Category: Medical (3) Screening for colon cancer: Code(s): Z12.11 - Encounter for screening for malignant neoplasm of colon Category: Medical (4) Skinny: Code(s): R68.89 - Other general symptoms and signs Category: Medical Plan . Orders: Orders HIV Ab/Ag Today R68.89 - Other general symptoms and signs Hepatitis A,B,C Profile Today R68.89 - Other general symptoms and signs T Spot TB Today Z11.1 - Encounter for screening for respiratory tuberculosis Erythrocyte Sedimentation Rate Today R68.89 - Other general symptoms and signs C Reactive Protein Today R68.89 - Other general symptoms and signs Referrals Gastroenterology Referral Z12.11 - Encounter for screening for malignant neoplasm of colon Medications: Changed From lisinopril 2.5 mg PO DAILY 90 tabs 1RF To lisinopril 10 mg PO DAILY 90 tabs 1RF
[2025-04-23 11:23] VITALS: BP 160/100
--- OUTSIDE RECORDS SUMMARY | 2025-04-23 11:32 | XMS_ITS | Clinical Summary ---
Author Organization [facility] ity Address [address] [place] [address] Care Team Providers Care Director Of Digital Marketing Name Role Phone Unavailable Primary Care Provider Unavailabl e Social History Tobacco Use Types Packs/Day Years Used Date Smoking Tobacco: Never Assessed Sex and Gender Information Value Date Recorded Sex Assigned at Not on file Legal Sex Male 1:05 AM EST Gender Identity Not on file Sexual Orientation Not on file Plan of Treatment Health Maintenance Due Date Last Done Comments DTaP,Tdap,and Td Vaccines (1 - Tdap) 1982 Pneumococcal Vaccine: 50+ Ye ars (1 of 1 - PCV) 2013 Zoster Vaccines (1 of 2) 2013 Depression Screening 07/25/2024 COVID-19 Vaccine (1 - 2023-2 5 season) 2025 Influenza Vaccine (#1) 2025 RSV Immunization Adult Patie nts (1 - 1-dose 75+ series) 2038 HIB Vaccines Aged Out No longer eligi ble based on patient's age to complete this topic HPV Vaccines Aged Out No longer eligi ble based on patient's age to complete this topic Hepatitis A Vaccines Aged Out No long er eligible based on patient's age to complete this topic Hepatitis B Vaccines Aged Out No long er eligible based on patient's age to complete this topic IPV Vaccines Aged Out No longer eligi ble based on patient's age to complete this topic MMR Vaccines Aged Out No longer eligi ble based on patient's age to complete this topic Meningococcal ACWY Vaccine Aged Out N o longer eligible based on patient's age to complete this topic Meningococcal B Vaccine Aged Out No l onger eligible based on patient's age to complete this topic RSV Immunization Patients Un cassidy 20 months Aged Out No longer eligible b ased on patient's age to complete this topic Varicella Vaccines Aged Out No longer eligible based on patient's age to complete this topic
== END 2025-04-23 12:19 | disposition home or self-care (01) ==
PROVIDERS: PCP Nurse Practitioner Family; Visit Provider Nurse Practitioner Family
DX: I10 Essential (primary) hypertension (principal); Z11.1 Encounter for screening for respiratory tuberculosis; Z12.11 Encounter for screening for malignant neoplasm of colon; R68.89 Other general symptoms and signs

== ENCOUNTER → 2025-04-23 10:22 | Outpatient (BNVA) | payer OTHER, SELFPAY | PROVIDERS: PCP Nurse Practitioner Family; Visit Provider Nurse Practitioner Family | DX: I10 Essential (primary) hypertension (principal); R68.89 Other general symptoms and signs; F17.210 Nicotine dependence, cigarettes, uncomplicated | CPT/HCPCS: 96127; 99212 ==

== ENCOUNTER 2025-06-14 09:22 | Outpatient (REF) | payer OTHER, SELFPAY ==
--- NOTE | ~2025-06-14 | XR_ITS ---
EXAMINATION: XR KNEE, RIGHT CLINICAL INFORMATION: S89.91XA - Unspecified injury of right lower leg, initial encounter COMPARISON: None available. TECHNIQUE: AP and lateral views of the right knee. FINDINGS: No fracture, dislocation, or focal bony abnormality. No malalignment. There is minimal medial compartment and patellofemoral compartment joint space narrowing. Lateral compartment is preserved. There is no significant suprapatellar joint effusion. Mild ventral soft tissue swelling is present. There are mild vascular calcifications. XR/XR knee RT 2V IMPRESSION: 1. No acute bony abnormality of the right knee. No joint effusion. Electronically signed by: Barrett Lancaster MD 06/14/2025 10:11 AM PANKAJ
--- NOTE | ~2025-06-14 | XR_ITS ---
EXAMINATION: XR TIBIA AND FIBULA, RIGHT CLINICAL INFORMATION: S89.91XA - Unspecified injury of right lower leg, initial encounter COMPARISON: None available. TECHNIQUE: AP and lateral views of the right tibia and fibula were obtained. FINDINGS: Small marginal osteophytes are present along the medial tibial plateau and lateral femoral condyle. There is mild joint space narrowing involving lateral compartment of the knee. No fracture or erosion is evident. XR/XR tibia fibula RT 2V IMPRESSION: No acute bony abnormality. Electronically signed by: Gaudencio Sloan MD 06/14/2025 10:13 AM PANK[facility]
== END 2025-06-14 09:23 | disposition home or self-care (01) ==
LOC: HO.HMGCX 09:22
PROVIDERS: PCP Nurse Practitioner Family; Visit Provider Internal Medicine
DX: S89.91XA Unspecified injury of right lower leg, initial encounter (principal); X58.XXXA Exposure to other specified factors, initial encounter
CPT/HCPCS: 73560; 73590; 99212

== ENCOUNTER 2025-06-14 09:22 | Outpatient (AMB) | payer OTHER, SELFPAY ==
--- NOTE | 2025-06-14 09:39 | AM.OFFWIN_ITS ---
Intake Vital Signs 06/14/25 09:40 Weight 110 lb BP 160/90 H Blood Pressure Location Lt brachial Position Sitting Respiration 16 Pulse 60 Pulse Source Pulse Oximeter Temp 97.6 F Temp Source Oral Pulse Oximetry (%) 95 Oxygen Delivery Method Room Air Intake Visit Reasons: EP Lump on right leg Intake Note: Pt coming in with right knee pain x1 week. Patient Tobacco Use Status: Current everyday Tobacco user Resourcing Advisor Required: No Accompanied by: Self / Same As Patient Allergies metoclopramide (Reglan) Allergy (Unknown, Verified 06/14/25 09:41) vomiting morphine (Morphine) Allergy (Unknown, Verified 06/14/25 09:41) NAUSEA & VOMITING, nausea/vomiting, vomiting tramadol (TRAMADOL) Allergy (Unknown, Verified 06/14/25 09:41) VOMITING, nausea/vomiting, vomiting Medication List - Last Reconciled 06/14/25 by Kvng Machado MD albuterol sulfate 90 mcg/actuation 1 inh inhalation QID PRN albuterol sulfate 90 mcg/actuation 2 puffs inhalation Q6H PRN 30 days amitriptyline 50 mg PO BEDTIME 30 days blood pressure test kit-large ([facility]ocate Blood Pressure Monitor kit) daily lisinopril 20 mg PO DAILY Do you need a note to return to daycare/school/sports/work: No HPI EP Lump on right leg HPI Details History of Present Illness The patient is a 60 year old individual presenting for evaluation of a lump below the knee. Leg contusion: - The patient reports having a fall a co uple of weeks ago. - A lump developed just below the knee o n the tibia after the fall. - The patient experiences pain only on d irect impact to the area and denies any difficulty walking. Hypertension: - The patient has a history of hypertens ion, for which the patient takes medication. - The patient is currently taking lisino pril 10 mg. Social History: - The patient lives with a cousin. Problem List - Injury of leg right leg / Knee - Hypertension Plan - An X-ray of the leg will be obtained t o evaluate the lump. along with Knee - The patient will be contacted with the X-ray results and for further management. - The dosage of lisinopril will be incre ased to 20 mg daily to manage high blood pressure. . 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 LANDSCAPE: Alert awake oriented x3 motor intact Skin: Normal turgor [facility] Medical History Developmental delay, borderline Nicotine dependence, cigarettes, uncomplicated HTN (hypertension) Migraines Surgical History History of transurethral resection of prostate History of right inguinal hernia repair History of removal of cyst History of testicular surgery History of shoulder surgery Family History Father Lung cancer Mother Breast cancer Social History Housing: House Patient Tobacco Use Status: Current everyday Tobacco user Tobacco use type: Cigarette Cigarette Packs Per Day: 1 Years Smoked: (onset 9yo, 1ppd x 48yrs, 40+PYH) e-Cigarette/Vaping Use: Never Used Second Hand Smoke Exposure: No Current occupational status: disabled Cognitive needs: No Hearing needs: No Vision needs: No Physical Exam Vital Signs: Last Vital Signs Temp 97.6 F 06/14/25 09:40 Pulse 60 06/14/25 09:40 Resp 16 06/14/25 09:40 BP 160/90 H 06/14/25 09:40 Pulse Ox 95 06/14/25 09:40 Oxygen Delivery Method Room Air 06/14/25 09:40 Assessment & Plan Assessment & Plan (1) Injury of knee, right: Code(s): S89.91XA - Unspecified injury of right lower leg, initial encounter Qualifiers: Encounter type: initial encounter Qualified Code(s): S89.91XA - Unspecified injury of right lower leg, initial encounter (2) Injury of right leg: Code(s): S89.91XA - Unspecified injury of right lower leg, initial encounter Qualifiers: Encounter type: initial encounter Qualified Code(s): S89.91XA - Unspecified injury of right lower leg, initial encounter Plan History of Present Illness The patient is a 60 year old individual presenting for evaluation of a lump below the knee. Leg contusion: - The patient reports having a fall a couple of weeks ago. - A lump developed just below the knee on the tibia after the fall. - The patient experiences pain only on direct impact to the area and denies any difficulty walking. Hypertension: - The patient has a history of hypertension, for which the patient takes medication. - The patient is currently taking lisinopril 10 mg. Social History: - The patient lives with a cousin. Problem List - Injury of leg right leg / Knee - Hypertension Plan - An X-ray of the leg will be obtained to evaluate the lump. along with Knee - The patient will be contacted with the X-ray results and for further management. - The dosage of lisinopril will be increased to 20 mg daily to manage high blood pressure. . X rays didnt show any Bone findings most likely its a soft tissue swelling Patient was instructed to apply ice, we will book apt with PCP in 10 days for follow up Orders: Orders XR tibia fibula RT 2V Today S89.91XA - Unspecified injury of right lower leg, initial encounter XR knee RT 2V Today S89.91XA - Unspecified injury of right lower leg, initial encounter Medications: Changed From lisinopril 10 mg PO DAILY 90 tabs 1RF To lisinopril 20 mg PO DAILY 90 tabs 1RF Coding Level of Care Code Est Pt Level 4 (03536) Diagnoses Injury of right knee, initial encounter S89.91XA Encounter type: initial encounter Injury of right lower extremity, initial encounter S89.91XA Encounter type: initial encounter
[2025-06-14 09:40] VITALS: BP 160/90; PULSE 60; RESP 16; TEMP 36.4; O2SAT 95
--- OUTSIDE RECORDS SUMMARY | 2025-06-14 09:48 | XMS_ITS | Clinical Summary ---
Author Organization [facility] ity Address [address] [place] [address] Care Team Providers Care Hand Lacer Name Role Phone Unavailable Primary Care Provider [...] Depression Screening 07/25/2024 COVID-19 Vaccine (1 - 2024-2 6 season) 2025 Influenza Vaccine (#1) 2025 RSV [...]
== END 2025-06-14 09:54 | disposition home or self-care (01) ==
PROVIDERS: PCP Nurse Practitioner Family; Visit Provider Internal Medicine
DX: S89.91XA Unspecified injury of right lower leg, initial encounter (principal)

== ENCOUNTER → 2025-06-14 09:54 | Outpatient (BNV) | payer OTHER, SELFPAY | PROVIDERS: PCP Nurse Practitioner Family; Visit Provider Radiology Diagnostic Radiology | DX: S89.91XA Unspecified injury of right lower leg, initial encounter (principal) | CPT/HCPCS: 73560; 73590 ==

== ENCOUNTER 2025-07-02 13:14 | Outpatient (AMB) | payer OTHER, SELFPAY ==
[2025-07-02 13:17] VITALS: BP 160/98; PULSE 70; O2SAT 97; BMI 19.5
--- NOTE | 2025-07-02 13:17 | MHC.PC.OV ---
Vital Signs 07/02/25 13:17 Height 5 ft 3 in Weight 110 lb BMI 19.5 BP 160/98 H Blood Pressure Location Lt brachial Position Sitting Pulse 70 Pulse Source Pulse Oximeter Pulse Oximetry (%) 97 Oxygen Delivery Method Room Air Intake Visit Reasons: lump on leg Inbound Sales Advisor Required: No Accompanied by: Self / Same As Patient Allergies metoclopramide (Reglan) Allergy (Unknown, Verified 07/02/25 14:23) vomiting morphine (Morphine) Allergy (Unknown, Verified 07/02/25 14:23) NAUSEA & VOMITING, nausea/vomiting, vomiting tramadol (TRAMADOL) Allergy (Unknown, Verified 07/02/25 14:23) VOMITING, nausea/vomiting, vomiting Medication List - Last Reconciled 07/02/25 by RAMIN Toribio- albuterol sulfate 90 mcg/actuation 1 inh inhalation QID PRN albuterol sulfate 90 mcg/actuation 2 puffs inhalation Q6H PRN 30 days amitriptyline 50 mg PO BEDTIME 30 days blood pressure test kit-large ([facility] Blood Pressure Monitor kit) daily lisinopril 20 mg PO DAILY Tobacco use date assessed: 07/02/25 Dental Screening Dental Screen Date: 07/02/25 Did you have a dental visit in the last 12 months?: No Did you have a dental problem in the last 6 months where you did not have access to dental care?: No Was dental information given to patient?: Patient declined HPI lump on leg HPI Details Chief Complaint The patient reports a tender bump on his right anterior martinez following a fall. History of Present Illness The patient is a 60-year-old male presenting for follow-up on a fall. He reports a tender bump on his right anterior martinez, which has been present for quite some time and becomes tender, especially when kneeling. His blood pressure remains elevated, and he admits to not taking his lisinopril. He denies chest pain, shortness of breath, dizziness, or blurred vision. He has a history of anxiety and aggression, which are helped by his two waitstaff captain pets. Social History - Housing: He requires a note for housing to keep his two pets. - Support Animals: He has two dogs that serve as companions and help with his anxiety and aggression. Health Maintenance declines vaccinations went over importance of getting blood work, and LDCT follow ups Review of Systems - Musculoskeletal: Reports a tender bump on his right anterior martinez. - Cardiovascular: Denies chest pain. - Respiratory: Denies shortness of breath or increased shortness of breath. - Neurological: Denies dizziness. - Eyes: Denies blurred vision. - Psychiatric: Reports anxiety and aggression helped by waitstaff captain animals. Physical Exam General: Cooperative, healthy appearing, comfortable, no acute distress and well developed Orientation: Patient oriented x3 Limitations: No limitations Head: Normal to inspection Ears: Hearing grossly normal bilaterally Nose: Normal external nose present Face and sinus: Normal facial exam Eyes: Appearance normal, both eyes and all related structures Neck: Normal visual inspection and Yes full ROM Respiratory: Normal respiratory effort and able to speak in complete sentences, dim though moving air, with faint scattered wheezes. Cardiovascular: Regular rate and rhythm. Normal S1 and S2 GI: Normal to inspection. Soft to palpation and nontender Skin: No rashes or lesions noted Neuro: Patient oriented x3 Extremities: Large bump on right anterior martinez (inferior to patella), likely related to Devora-Schlatter's disease. Normal to inspection otherwise. Results Plan 1. Hypertension The patient's blood pressure remains elevated due to non-adherence with his lisinopril, which he admitted to not taking. A refill for lisinopril will be provided. The patient was instructed to monitor his blood pressure at home and report the readings via the patient portal or by dropping them off. 2. Support Animal Documentation The patient requires a note for his housing to keep his two pet dogs, which serve as waitstaff captain animals to help with his anxiety and aggression. A note will be written classifying them as service animals to allow him to keep them at his residence. 3. Devora-Schlatter Disease The tender bump on the right anterior martinez is likely related to [place]-Schlatter disease, presenting as a large bone spur that becomes painful with pressure, such as when kneeling. The patient was counseled on the nature of this common condition and advised to use a protective pad on this area when kneeling or working on his knees. Discussion Notes I discussed with the patient that the tender bump on his martinez is likely due to [place]-Schlatter's disease, which is essentially a large bone spur that can become tender with pressure, particularly when kneeling. I explained the commonality of the condition and stressed the importance of using a protective pad for that area when he has to bend down or work on his knees. We addressed his elevated blood pressure, and he admitted to not taking his lisinopril. I will refill his prescription and instructed him to monitor his blood pressure at home and send the readings to me. We also discussed his need for a note for housing regarding his two pets. He stated they are his companions and help with his anxiety and aggression, so I will gladly write a letter designating them as service animals so he can keep them with him. Patient Instructions - Use a protective pad on your right martinez when you are kneeling or bending down to protect the tender bump. - Restart taking your lisinopril medication as prescribed for your high blood pressure. Your prescription will be refilled. - Please check your blood pressure at home and send the results to us through the patient portal, or you can drop them off at the office. - A note will be provided for your housing to allow you to keep your two dogs as service animals. [facility] Medical History Developmental delay, borderline Nicotine dependence, cigarettes, uncomplicated HTN (hypertension) Migraines Surgical History History of transurethral resection of prostate History of right inguinal hernia repair History of removal of cyst History of testicular surgery History of shoulder surgery Family History Father Lung cancer Mother Breast cancer Social History Housing: House Patient Tobacco Use Status: Current everyday Tobacco user Tobacco use type: Cigarette Cigarette Packs Per Day: 1 Years Smoked: (onset 9yo, 1ppd x 48yrs, 40+PYH) e-Cigarette/Vaping Use: Never Used Second Hand Smoke Exposure: No Current occupational status: disabled Cognitive needs: No Hearing needs: No Vision needs: No Questionnaire Thrive Questionnaire Date Thrive assessed: 10/22/24 KENNETH-7 AMB Questionnaire KENNETH-7 Date KENNETH - 7 assessed: 04/23/25 Source: Developed by Drs. Hood Mora, Halley Bellamy, Al López and colleagues, with an educational zachary from [employer]. Physical exam (Primary Care) Vital Signs: Last Vital Signs Pulse 70 07/02/25 13:17 BP 160/98 H 07/02/25 13:17 Pulse Ox 97 07/02/25 13:17 Oxygen Delivery Method Room Air 07/02/25 13:17 BMI result Body Mass Index 19.5 Tobacco/Smoking Status: Tobacco use Status Tobacco use date assessed 07/02/25 07/02/25 13:22 Patient Tobacco Use Status Current everyday Tobacco 07/02/25 13:19 Tobacco use type Cigarette 07/02/25 13:19 e-Cigarette/Vaping Use Never Used 07/02/25 13:19 Thrive Assessment: Date of Thrive Assessment Date Thrive assessed 10/22/24 07/02/25 13:19 Coding Level of Care Code Est Pt Level 3 (28867) Diagnoses HTN (hypertension) I10 Bone spur M77.9 Assessment & Plan Assessment & Plan (1) HTN (hypertension): Code(s): I10 - Essential (primary) hypertension Category: Medical (2) Bone spur: Comment: anterior tibial tubercle Code(s): M77.9 - Enthesopathy, unspecified Category: Medical Plan . Orders: Orders Comprehensive [place]. Panel Fast Today I10 - Essential (primary) hypertension Complete Blood Count Auto Diff Today I10 - Essential (primary) hypertension TSH reflex Free T4 Today I10 - Essential (primary) hypertension UA CC w/rflx Micro + Cult Today I10 - Essential (primary) hypertension Lipid Panel Today I10 - Essential (primary) hypertension
--- OUTSIDE RECORDS SUMMARY | 2025-07-02 17:39 | XMS_ITS | Clinical Summary ---
Author Organization [facility] ity Address [address] [place] [address] Care Team Providers Care Marble Worker Name Role Phone Unavailable Primary Care Provider [...]
== END 2025-07-02 14:08 | disposition home or self-care (01) ==
PROVIDERS: PCP Nurse Practitioner Family; Visit Provider Nurse Practitioner Family
DX: I10 Essential (primary) hypertension (principal); M77.9 Enthesopathy, unspecified

== ENCOUNTER → 2025-07-02 13:14 | Outpatient (BNVA) | payer OTHER, SELFPAY | PROVIDERS: PCP Nurse Practitioner Family; Visit Provider Nurse Practitioner Family | DX: I10 Essential (primary) hypertension (principal); F41.9 Anxiety disorder, unspecified; R45.1 Restlessness and agitation; M76.891 Other specified enthesopathies of right lower limb, excluding foot; Z91.81 History of falling | CPT/HCPCS: 99212 ==